=== PATIENT | female | born 1955 | race Caucasian/White ===

== ENCOUNTER → 2016-08-29 | Outpatient (CLI) | payer BC ==
--- NOTE | 2016-08-29 11:00 | MM ---
Reason for exam: follow-up at short interval from prior study. Last mammogram was performed 5 months ago. History: Patient is postmenopausal and has history of breast cancer at age 47. Lumpectomy of the right breast. Chemotherapy. Radiation therapy of the right breast. Took hormonal contraceptives for 6 months. Took antineoplastic for 5 years beginning at age 48. Took other hormone for 5 years beginning at age 53. Physical Findings: Nurse did not find any significant physical abnormalities on exam. [facility] Diagnostic Mammo w CAD BERTRAM Bilateral CC and MLO view(s) were taken. Prior study comparison: March 21, 2016, right breast MG diagnostic mammo RT w CAD. August 16, 2015, bilateral MG diagnostic mammo w CAD BERTRAM. The breast tissue is heterogeneously dense. This may lower the sensitivity of mammography. Asymmetric breast tissue greater in the left breast. There is chronic nodularity in the right breast. Post surgical clips and changes in the right breast upper outer quadrant. No significant new findings when compared with previous films. These results were verbally communicated with the patient and result sheet given to the patient on 08/29/16. ASSESSMENT: Benign, BI-RAD 2 RECOMMENDATION: Follow-up diagnostic mammogram of both breasts in 1 year.
== END | disposition home or self-care (01) ==
LOC: RADMAMWWP 08:49
PROVIDERS: ATTEND Family Medicine
DX: Z85.3 Personal history of malignant neoplasm of breast (principal)

== ENCOUNTER → 2017-09-26 | Outpatient (CLI) | payer BC ==
--- NOTE | 2017-09-27 08:09 | MM ---
Reason for exam: additional evaluation requested from prior study. Last mammogram was performed 1 year and 1 month ago. History: Patient is postmenopausal and has history of breast cancer at age 47. Lumpectomy of the right breast. Chemotherapy. Radiation therapy of the right breast. Took hormonal contraceptives for 6 months. Took antineoplastic for 5 years beginning at age 48. Took other hormone for 5 years beginning at age 53. Physical Findings: Nurse did not find any significant physical abnormalities on exam. MG Diagnostic Mammo w CAD BERTRAM Bilateral CC and MLO view(s) were taken. XCCL view(s) were taken of the right breast. Prior study comparison: August 29, 2016, bilateral MG diagnostic mammo w CAD BERTRAM. March 21, 2016, right breast MG diagnostic mammo RT w CAD. The breast tissue is heterogeneously dense. This may lower the sensitivity of mammography. Finding: Architectural distortion in the inner quadrant, posterior position of the right breast consistent with known lumpectomy changes redemonstrated. There is no discrete abnormality. These results were verbally communicated with the patient and result sheet given to the patient on 09/26/17. ASSESSMENT: Benign, BI-RAD 2 RECOMMENDATION: Follow-up diagnostic mammogram of both breasts in 1 year.
== END | disposition home or self-care (01) ==
LOC: RADMAMWWP 10:58
PROVIDERS: ATTEND Family Medicine
DX: Z08 Encounter for follow-up examination after completed treatment for malignant neoplasm (principal); Z85.3 Personal history of malignant neoplasm of breast
CPT/HCPCS: 77066